=== PATIENT | male | born 1965 | race Caucasian/White ===

== ENCOUNTER 2016-10-14 00:18 | Emergency (ER) | payer MEDICAID ==
[~2016-10-14] VITALS: Ht 172.7 cm; Wt 86.2 kg
[2016-10-14 01:17] VITALS: BP_SYST 150
--- NOTE | 2016-10-14 01:49 | NUR ---
Patient to ER bed 1 for evaluation. Side rails up.
--- NOTE | 2016-10-14 01:49 | NUR ---
Pt a/o x 4, c/o toothache, rt lower molar, x 2 weeks, worse x 4 to 5 days. Reported intense throbbing pain, 9/10 radiating to his ear and rt lower jaw. Took Motrin 800 mg with some relief. Pt claimed dental appointment is not until November 15. Pt afebrile, no chills, no other remarkable symptoms noted.
--- NOTE | 2016-10-14 01:50 | NUR ---
ER at bedside examining patient.
[2016-10-14] MEDS ORDERED: HYDROcodone/ACETAMIN 5-325 MG TAB (NORCO/ VICODIN) PO ONE (02:00)
[2016-10-14 02:51] VITALS: BP_SYST 145
--- NOTE | 2016-10-14 02:51 | NUR ---
Patient given written and verbal discharge instructions and verbalizes understanding. ER MD discussed with patient the results and treatment provided. Patient in stable condition. ID arm band removed. Rx of Hardin 5/325 mg and Augmentin 875 mg given. Patient educated on pain management and to follow up with PMD. Pain Scale 0/10. Opportunity for questions provided and answered.
== END 2016-10-14 02:51 | disposition home or self-care (01) ==
LOC: SED 00:18
DX: K02.9 Dental caries, unspecified (principal)
CPT/HCPCS: 99283

== ENCOUNTER 2017-04-19 03:38 | Emergency (ER) | payer OTHER, MEDICAID ==
[~2017-04-19] VITALS: Ht 175.3 cm; Wt 86.2 kg
[2017-04-19 03:38] VITALS: BP_SYST 162
[2017-04-19 04:24] VITALS: BP_SYST 156
== END 2017-04-19 04:24 | disposition home or self-care (01) ==
LOC: SED 03:38
DX: M27.69 Other endosseous dental implant failure (principal)
CPT/HCPCS: 99283